=== PATIENT | female | born 1945 ===

== ENCOUNTER → 2019-08-15 | Outpatient (CLI) | payer OTHER, MEDICARE ==
[~2019-08-15] VITALS: Ht 157.5 cm; Wt 43.5 kg
[~2019-08-15] MED LIST: ALPRAZOLAM1 MG PO; ASA81BEC PO; CELEXA40 MG PO; CHOLESTYRAMINE R5 GM PO; CREON DR 36,001 EACH PO; FOLIC ACID1 MG PO; LEVEMIR FL100 UNIT/2 SUBQ; LOVASTATIN 20 M20 MG PO; MAGNESIUM250 M1 PO; METFORMIN HCL500 MG PO; MULTI VITAMIN1 EACH PO; NORVASC5 M1 PO; PLAVIX 75 MG TA75 MG PO; PROTONIX40 M1 PO; SLOW FE142 MG PO; TOPROL XL25 MG PO; VENTOLIN HFA INH8 GM INH; VITAMIN B-121000 MC3 PO; VITAMIN C500 M1 PO; VITAMIN D35000 UNI2 PO; ZESTRIL20 MG PO
--- NOTE | ~2019-08-15 | P ---
[facility] [place] [address] PROCEDURE REPORT Name: HESHAM GRANT Room #: REG [facility].#: [id number] Admission: 08/15/19 Attend Phys: Regulo Vogel Discharge: Date of : 49 Report #: [id number] THIS REPORT FOR: cc: Moni Juarez MD,Regulo Dean MD, MD ~ CC: Regulo Juarez MD DATE OF SERVICE: 08/15/2019 PROCEDURE PERFORMED: Colonoscopy with biopsies. HISTORY OF PRESENT ILLNESS: The patient is a 74-year-old female with intermittent diarrhea. Upper endoscopy was just performed. Plan is for colonoscopy. Her last colonoscopy was approximately 10 years ago. No family history of colon cancer. DESCRIPTION OF PROCEDURE: The risks and benefits of the procedure were explained to the patient, those risks including but not limited to bleeding, perforation and the risk of sedation. She understood these risks and gave me informed consent. Sedation was given using propofol per anesthesia. Next, a digital rectal exam was initially performed, which was normal. Next, using a standard Olympus colonoscope, the scope was placed in the patient's anus and advanced under direct vision to the cecum. The overall prep was good. The cecum and ileocecal valve were normal in appearance. Terminal ileum was intubated and normal in appearance. In the proximal ascending colon, a 5 mm sessile polyp was noted. This was removed with cold forceps, otherwise normal. The transverse and descending colon were normal. Random biopsies were obtained today to rule out the possibility of microscopic colitis. Multiple small diverticula were noted in the sigmoid colon, no evidence of inflammation, otherwise normal. The rectal mucosa was normal. On retroflexion, small nonbleeding internal hemorrhoids were noted. The scope was then withdrawn and the procedure terminated. The patient tolerated the procedure well. IMPRESSION: 1. Small colonic polyp. 2. Diverticulosis. 3. Internal hemorrhoids. 4. Otherwise, normal colonoscopy. RECOMMENDATIONS: 1. Await biopsy results. 2. If polyp is an adenomatous polyp, repeat in 5 years; if hyperplastic, repeat in 10 years. [facility] [address] [place] [address] PROCEDURE REPORT Name: HESHAM GRANT Room #: REG Katarzyna Lucero#: [id number] Admission: 08/15/19 Attend Phys: Regulo Vogel Discharge: Date of : 49 Report #: [id number] Thank you for allowing me to participate in her care. By: [id number] Regulo Alexander MD /nt
--- NOTE | ~2019-08-15 | P ---
[facility] [place] [address] [address] PROCEDURE REPORT Name: HESHAM GRANT Room #: REG [facility] Huong.#: [id number] Admission: 08/15/19 Attend Phys: Regulo Vogel Discharge: Date of : 49 Report #: [id number] THIS REPORT FOR: cc: Moni Juarez MD,Regulo Dean MD, MD ~ CC: Regulo Juarez MD DATE OF SERVICE: 08/15/2019 PROCEDURE PERFORMED: Upper endoscopy with biopsies and esophageal dilation. HISTORY OF PRESENT ILLNESS: The patient is a 74-year-old female who was seen by myself for her initial visit on 08/02/2019 in the office with complaints of intermittent diarrhea. The patient has had a previous Ho-en-Y gastric bypass many years ago. She takes omeprazole 40 mg on a daily basis. She does complain of intermittent dysphagia. The patient also had a recent weight loss. CT scan of the abdomen and pelvis showed partial gastrectomy changes. Moderate thickening of her distal esophagus was seen. No evidence of significant stenosis or mesenteric vessels. The patient also is on Plavix and aspirin for history of strokes. Plan is for EGD and colonoscopy today. DESCRIPTION OF PROCEDURE: The risks and benefits of the procedure were explained to the patient, those risks including but not limited to bleeding, perforation and the risk of sedation. She understood these risks and gave informed consent. Sedation was given using propofol per anesthesia. Next, using a standard Olympus upper endoscope, the scope was placed in the patient's mouth and advanced under direct vision through the esophagus, stomach and into the jejunum. The upper and mid esophagus was normal in appearance. In the distal esophagus, mild grade A erosive esophagitis was seen. No evidence of stricture. Surgical changes consistent with Ho-en-Y gastric bypass were noted with a small gastric remnant left. The gastric mucosa that remained was normal. The surgical anastomosis was patent. I advanced the scope well into the jejunum which appeared normal. Biopsies were obtained to rule out the possibility of celiac sprue. The scope was then brought back up into the proximal jejunum and a Savary guidewire was inserted through the scope, leaving the guidewire in place as the scope was then withdrawn. Next, a 48-English Savary dilation of her esophagus was then performed without difficulty. The wire and dilator were removed. The scope was reintroduced into the patient's gastric remnant. No evidence of mucosal tear was noted after dilation. The scope was then withdrawn and the procedure terminated. The patient tolerated the procedure well. IMPRESSION: [facility] [address] [place] [address] PROCEDURE REPORT Name: HESHAM GRANT Room #: REG [facility] Nic#: [id number] Admission: 08/15/19 Attend Phys: Regulo Vogel Discharge: Date of : 49 Report #: [id number] 1. Surgical changes consistent with Ho-en-Y gastric bypass. 2. Grade A erosive esophagitis. 3. Otherwise, normal upper endoscopy. RECOMMENDATIONS: 1. Await biopsy results. 2. Observe the patient post-dilation. 3. We will proceed with colonoscopy next today. Thank you for allowing me to participate in her care. By: [id number] 1152 Regulo Alexander MD /nt
--- NOTE | 2019-08-16 17:07 | PATH ---
[facility] [address] [address] PATHOLOGY RPT PROCEDURE Name: HESHAM GRANT Room #: REG [facility] M.R.#: [id number] Admission: 08/15/19 Date of : 49 Discharge: Report #: [id number] Path Case #: [id number] [facility] Accession Number: [id number] . 01 Material submitted: . PART A: small bowel - BX SMALL BOWEL PART B: colon - RANDOM COLON BX PART C: colon - POLYP AT ASCENDING COLON. Modifiers: ascending . 01 Clinical history: . Diarrhea, weight loss, dysphagia, diverticulosis, r/o celiac, r/o microscopic colitis . 02 Diagnosis: A. Small bowel mucosa, small bowel rule out celiac, endoscopic biopsy: - No diagnostic abnormalities present. - Negative for villous blunting or increase in intraepithelial lymphocytes. . B. Large intestinal mucosa, random colon rule out microscopic colitis, endoscopic biopsy: - Mild focal acute cryptitis, see comment. - Scattered pigmented macrophages within lamina propria. - Negative for dysplasia or malignancy. . C. Polyp, at ascending colon, endoscopic biopsy: - Tubular adenoma. - Negative for high dysplasia. . (IUV:thread laster; 08/16/2019) MBR 08/16/2019 1407 Local . 02 Comment: Sections of the colonic mucosa designated "random colon" show focal cryptitis, and a moderately cellular lamina propria composed predominantly of lymphocytes and plasma cells and occasional eosinophils. Surface ulceration is not identified. There are no crypt abscesses, granulomas or viral inclusions. The process affects all the fragments with a similar intensity. Given the description, the differential diagnosis includes focal acute self-limited episode of colitis, laxative use, medication/drug-induced colitis, acute diverticulitis, amongst other possibilities. Please correlate with clinical as well as endoscopic findings. (IUV:thread laster; 08/16/2019) . 02 Electronically signed: . Amara Dietrich MD, Pathologist [address] [address] PATHOLOGY RPT PROCEDURE Name: HESHAM GRANT [id number] Admission: 08/15/19 Date of : 49 Discharge: Report #: [id number] Path Case #: [id number] I- [id number] . 01 Gross description: . A. The specimen is received in formalin, labeled "Hesham Grant", "small bowel biopsy". Received are multiple segments of pale auguste soft tissue ranging in size from 0.2 cm to 0.3 cm. The specimen is entirely submitted in cassette A1. . B. The specimen is received in formalin, labeled "Hesham Grant", "random colon biopsy". Received are multiple segments of pale auguste soft tissue, ranging in size from 0.2 cm to 0.4 cm. The specimen is entirely submitted in cassettes B1 and B2. . C. The specimen is received in formalin, labeled "Hesham Grant", "ascending colon polyp". Received is a single segment of pale auguste soft tissue measuring 0.3 cm. The specimen is entirely submitted in cassette C1.(SNA; 08/15/2019) SERA/GARDENIA 08/15/2019 1745 Local . 02 Pathologist provided ICD-10: K62.89, D12.2, R19.7, R63.4, R13.10, K57.90, K52.9 . 02 CPT . 160916, [id number], [id number] Specimen Comment: A courtesy copy of this report has been sent to [phone] Specimen Comment: Report sent to Performed at: 01 [facility] [address] [place] [address] [address], [place], [place] [id number] MD Norberto England MD Phone: [phone] Performed at: [address] [id number] MD Amara Dietrich MD Phone: [phone]
== END | disposition home or self-care (01) ==
LOC: GI 08:08
DX: R19.7 Diarrhea, unspecified (principal); D12.2 Benign neoplasm of ascending colon; K62.89 Other specified diseases of anus and rectum; K57.30 Diverticulosis of large intestine without perforation or abscess without bleeding; K64.8 Other hemorrhoids; K22.10 Ulcer of esophagus without bleeding; R63.4 Abnormal weight loss; R13.19 Other dysphagia; K21.9 Gastro-esophageal reflux disease without esophagitis; I10 Essential (primary) hypertension; I25.2 Old myocardial infarction; E78.5 Hyperlipidemia, unspecified; E11.9 Type 2 diabetes mellitus without complications; D64.9 Anemia, unspecified; Z79.899 Other long term (current) drug therapy; Z98.890 Other specified postprocedural states; Z98.84 Bariatric surgery status; Z86.73 Personal history of transient ischemic attack (TIA), and cerebral infarction without residual deficits; Z98.42 Cataract extraction status, left eye; Z98.41 Cataract extraction status, right eye; Z87.19 Personal history of other diseases of the digestive system
CPT/HCPCS: 62110; 62900